=== PATIENT | female | born 1995 | race Caucasian/White ===

== ENCOUNTER 2018-08-26 12:44 | Observation (INO) ==
[2018-08-26] MEDS ORDERED: Ondansetron ODT 4 MG TAB.RAPDIS SL ONE (13:11)
--- NOTE | 2018-08-26 13:30 | Emergency Department Note ---
Disposition Clinical Impression: Postoperative hemorrhage of tonsil Disposition: Admitted As Inpatient Condition: Fair Referrals: Aleta Huertas [Primary Care Provider] - Forms: ED Satisfaction Letter, Work/School Release Time of Disposition: 15:31 General Adult HPI - General Chief complaint: ED General Medical Stated complaint: bleeding s/p tonsilectomy Time Seen by Provider: 08/26/18 12:57 Source: patient Limitations: no limitations Nursing Notes Reviewed: Yes Vital Signs Reviewed: Yes - History of Present Illness HPI Narrative: Patient is a 23-year-old female presenting to [facility] ED for a one-day history of tonsil bleeding. The patient is status post 6 days after tonsillectomy performed at this facility. Patient states that she has had no difficulties other than typical pain after the surgery which is well-managed at home with oxycodone-until this afternoon when the scab fell off her wounds she began to sense metallic taste in her mouth and began to cough up blood. Patient estimates that she has coughed up in total approximately 60-100 mL of blood based upon the amount that is currently in vomit bag with her in the room. Blood appears to be dark red. Upon initial evaluation patient is sitting upright in hospital bed with vomit bag in hand she is actively spitting up dark red blood intermittently into vomit bag. Patient is awake, alert, engaged to conversation answering questions appropriately. She is noncyanotic, nondiaphoretic, shows no signs of significant pallor, she is in no acute distress and there are no focal neurological deficits appreciated. Patient admits to throat pain/sore throat which has been consistent for the past 7 days after tonsillectomy, she also admits to hemoptysis due to the tonsillar bleeding. Patient denies headache, vision change, tinnitus, neck/back pain, dysphagia/odynophagia, chest pain/shortness of breath, abdominal pain/nausea/vomiting, numbness or paresthesias in her extremities, dizziness upon standing or difficulty with ambulation. Onset (ago): hour(s) Location: neck Radiation: non-radiation Pain Scale: 7 Consistency: constant Associated symptoms: Reports: denies other symptoms - Related Data Previous Rx's Medication Instructions Recorded Amoxicillin 875 mg PO BID #20 tablet 08/20/18 OxyCODONE Immed Rel [Roxicodone 5 5 mg PO Q6H PRN 7 Days #28 tablet 08/20/18 MG] Allergies Allergy/AdvReac Type Severity Reaction Status Date / Time cephalexin [From Keflex] Allergy See Verified 08/26/18 15:25 Comments sulfamethoxazole Allergy See Verified 08/26/18 15:25 [From Bactrim] Comments trimethoprim [From Bactrim] Allergy See Verified 08/26/18 15:25 Comments Review of Systems: As Per HPI Past Medical History - Past Medical History Source: patient Medical history: Reports: hypertension, other Surgical history: Reports: appendectomy Psychiatric history: Reports: anxiety 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 Absent: scleral icterus - ENT ENT exam: mucous membranes moist - Expanded ENT Exam Mouth exam: Present: other (There is a large blood clot noted in the right side of the throat at tonsillectomy site. Bleeding from bilateral tonsillectomy sites noted, dark red in color, nonpulsatile.) Throat exam: Absent: muffled voice - Neck Neck exam: Present: normal inspection, trachea midline, tenderness - Chest Chest inspection: Present: normal inspection, symmetric chest wall rise - Respiratory Respiratory exam: Present: normal lung sounds bilaterally. Absent: respiratory distress, wheezes, stridor, accessory muscle use, prolonged expiratory phase - Cardiovascular Cardiovascular exam: Present: normal rhythm, tachycardia, normal heart sounds, +S1, +S2. Absent: systolic murmur, diastolic murmur, JVD, +S3, +S4 - Abdominal Exam Abdominal exam: Present: soft, Non-Tender, normal bowel sounds. Absent: distention, guarding, rebound, rigidity - Extremities Exam Extremities exam: Present: normal inspection, other (Radial pulse is intact and strong.) - Neurological Exam Neurological exam: Present: alert, oriented X3 - Psychiatric Psychiatric exam: Present: normal affect, normal mood, anxious - Skin Skin exam: Present: warm, dry, intact, normal color. Absent: cyanosis, diaphoresis, pallor Course Course Narrative: Patient given cold ice water in room in hopes of providing vasoconstriction to the tonsil area - told to sip slowly so as to not irritate gastric mucosa she has probably swallowed some amount of blood. Patient given 8 mg sublingual Zofran for prophylaxis of nausea and vomiting in order to avoid further irritating the tonsils. - Reevaluation(s) Reevaluation #1: Patient reported feeling "warm and tingly" all over. Expresses anxiety over increased blood loss. Visual inspection of the oropharynx reveals increased bleeding from the right tonsil with apparent loss of original clot. Patient is estimated to have lost a total of approximately 200mL of blood and saliva based upon the amount in vomit bag. ENT consulted and will see patient in ED. Patient transferred to trauma bay for cauterization preparation by ENT. Patient given ice chips and water and instructed to gargle to promote vasoconstriction. Suction catheter with patient for removal of secretions. 50mg tranexamic acid administered through nebulizer to promote clot formation. Patient will be given 1L bolus of normal saline and 0.5 mg Ativan for the management of her symptoms. Patient remains hemodynamically stable at this time. Time: 14:34 Reevaluation #2: Patient states that she is feeling much better still very anxious ENT evaluated patient at bedside and recommends admission to surgical service- ENT will take patient to or later this afternoon for clot removal and cauterization Patient says that it is difficult to talk due to a clot causing irritation in the back of her throat-there appears to be no active bleeding at this time Patient will be given second dose of 0.5 mg Ativan for the management of her anxiety Time: 15:29 Vital Signs Temperature 97.9 F 08/26/18 12:45 Pulse Rate 81 08/26/18 12:45 Respiratory Rate 16 08/26/18 12:45 Blood Pressure 175/103 08/26/18 12:45 O2 Sat by Pulse Oximetry 99 08/26/18 12:45 Temperature 97.9 F 08/26/18 12:45 Pulse Rate 92 08/26/18 15:28 Respiratory Rate 22 08/26/18 15:16 Blood Pressure 166/109 08/26/18 15:28 O2 Sat by Pulse Oximetry 100 08/26/18 15:16 Oxygen Delivery Oxygen Delivery Room Air Medical Decision Making - [facility] Narrative Medical decision making narrative: Patient admitted to surgical service with Dr. See accepting admission. Patient will be taken to our later this afternoon for clot removal and cauterization. Admission planning discussed at length with the patient and patient verbalizes her understanding and agreement with this plan. Patient is hemodynamically stable at time of admission. - Lab Data Lab results reviewed: Yes I reviewed the patient's lab results. Result diagrams: 08/26/18 14:24 08/26/18 14:24 Lab Results 08/26/18 08/26/18 08/26/18 Range/Units 14:24 14:24 14:31 WBC 23.8 H (4.3-11.1) K/mcL RBC 4.96 (3.82-4.97) M/mcL Hgb 13.2 (11.5-15.4) g/dL Hct 41.0 (35.3-44.9) % MCV 82.7 L (83.0-100.0) fL MCH 26.6 L (28.0-33.3) pg MCHC 32.2 (31.6-35.5) g/dL RDW 13.5 (11.5-14.5) % Plt Count 428 H (140-400) K/mcL MPV 9.0 L (9.4-12.4) fL Immature Gran % 0.8 (0-4) % Seg Neutrophils % 69.2 % Lymphocytes % 24.1 % Monocytes % 5.6 % Eosinophils % 0.1 % Basophils % 0.2 % Neutrophils # 16.5 H (1.6-8.9) K/mcL Lymphocytes # 5.7 H (0.6-4.6) K/mcL Monocytes # 1.3 (0.0-1.3) K/mcL Eosinophils # 0.0 (0.0-0.6) K/mcL Basophils # 0.0 (0.0-0.2) K/mcL PT 10.0 (9.4-12.1) Seconds INR 0.9 Sodium 138 (136-145) mEq/L Potassium 4.1 (3.5-5.1) mEq/L Chloride 102 (98-107) mEq/L Carbon Dioxide 30 H (23-29) mEq/L BUN 16 (6-20) mg/dL Creatinine 0.58 L (0.60-1.20) mg/dL Est GFR ( Amer) > 60 (> 60) Est GFR (Non-Af Amer) > 60 (> 60) BUN/Creatinine Ratio 28 H (6-26) Glucose 103 (70-105) mg/dL Calculated Osmolality 287 (280-300) Calcium 9.5 (8.6-10.3) mg/dL Attestation Statement - Attestation Attestation: I, Jaswinder Kiser DO, examined this patient [id number] and my medical decision-making was reviewed with Dr. Alexis Ponce, Resident Physician. I agree with the documented findings, disposition and treatment plan as described except to the extent set forth below. Please see my progress notes for details.
--- NOTE | 2018-08-26 13:45 | Emergency Department Note ---
Disposition Clinical Impression: Postoperative hemorrhage of tonsil Disposition: Admitted As Inpatient Condition: Fair Referrals: Aleta Huertas [Resident] - Forms: ED Satisfaction Letter, Work/School Release Time of Disposition: 15:17 General Adult HPI - General Chief complaint: ED General Medical Stated complaint: bleeding s/p tonsilectomy Time Seen by Provider: 08/26/18 12:57 Source: patient Limitations: no limitations - History of Present Illness Location: neck Pain Scale: 7 Associated symptoms: Reports: denies other symptoms - Related Data Home Medications Medication Instructions Recorded Confirmed Labetalol HCl 100 mg PO BID 08/20/18 08/20/18 Norethindrone-E.estradiol-Iron 1 each PO DAILY 08/20/18 08/20/18 [Junel Fe 1.5 mg-30 Mcg Tablet] Previous Rx's Medication Instructions Recorded Amoxicillin 875 mg PO BID #20 tablet 08/20/18 Dexamethasone [Decadron] 8 mg PO Q72H #4 tab 08/20/18 OxyCODONE Immed Rel [Roxicodone 5 5 mg PO Q6H PRN 7 Days #28 tablet 08/20/18 MG] Allergies Allergy/AdvReac Type Severity Reaction Status Date / Time cephalexin [From Keflex] Allergy See Verified 08/10/18 08:45 Comments sulfamethoxazole Allergy See Verified 08/10/18 08:45 [From Bactrim] Comments trimethoprim [From Bactrim] Allergy See Verified 08/10/18 08:45 Comments Past Medical History - Past Medical History Medical history: Reports: hypertension, other Surgical history: Reports: appendectomy Psychiatric history: Reports: anxiety 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 history - Social History Smoking Status: Never smoker Smokeless Tobacco Status: No Alcohol use: Reports: rarely Drug use: Reports: none Physical Exam - General Limitations: no limitations General appearance: alert, in no apparent distress Course Vital Signs Temperature 97.9 F 08/26/18 12:45 Pulse Rate 81 08/26/18 12:45 Respiratory Rate 16 08/26/18 12:45 Blood Pressure 175/103 08/26/18 12:45 O2 Sat by Pulse Oximetry 99 08/26/18 12:45 Temperature 97.9 F 08/26/18 12:45 Pulse Rate 98 08/26/18 14:30 Respiratory Rate 22 08/26/18 14:30 Blood Pressure 168/114 08/26/18 14:30 O2 Sat by Pulse Oximetry 100 08/26/18 14:30 Oxygen Delivery Oxygen Delivery Room Air Medical Decision Making - Lab Data Result diagrams: 08/26/18 14:24 Lab Results 08/26/18 Range/Units 14:24 WBC 23.8 H (4.3-11.1) K/mcL RBC 4.96 (3.82-4.97) M/mcL Hgb 13.2 (11.5-15.4) g/dL Hct 41.0 (35.3-44.9) % MCV 82.7 L (83.0-100.0) fL MCH 26.6 L (28.0-33.3) pg MCHC 32.2 (31.6-35.5) g/dL RDW 13.5 (11.5-14.5) % Plt Count 428 H (140-400) K/mcL MPV 9.0 L (9.4-12.4) fL Immature Gran % 0.8 (0-4) % Seg Neutrophils % 69.2 % Lymphocytes % 24.1 % Monocytes % 5.6 % Eosinophils % 0.1 % Basophils % 0.2 % Neutrophils # 16.5 H (1.6-8.9) K/mcL Lymphocytes # 5.7 H (0.6-4.6) K/mcL Monocytes # 1.3 (0.0-1.3) K/mcL Eosinophils # 0.0 (0.0-0.6) K/mcL Basophils # 0.0 (0.0-0.2) K/mcL Attestation Statement - Attestation Attestation: I, Jaswinder Kiser DO, examined this patient [id number] and my medical decision-making was reviewed with Dr. Alexis Ponce, Resident Physician. I agree with the documented findings, disposition and treatment plan as described except to the extent set forth below. Please see my progress notes for details. 23-year-old female presents emergency room with complaint of bleeding status post tonsillectomy on 08/07/18. Patient denies any new symptoms or issues. Last night one of the scabs and sharp fell off and on since then she has had intermittent bleeding when she spits. Patient denies any headache vision change s nausea vomiting or diarrhea prior to coming in. Denies any recent fevers or chills. Denies any trauma or injury. Vital signs otherwise stable in triage. Patient is alert she is oriented she speaking in full sentences. She does not have any signs of muffled voice. Oropharynx appears to be stable. Right tonsillar pole shows enlarged hematoma or clot attached to the surface of the tonsillar cavity. The original tonsil was removed. He is midline. Trachea is patent. There is trickling blood on the posterior pharynx this time. She has no stridor no trismus. Lungs are clear. Heart is regular. Patient denies any bleeding disorders. Patient had normal labs prior to that event almost 1 week ago. Patient will have cold water provided. Advised to gargle and spit out anything that is in her 30s this time. Suction and a WILL be placed at the bedside to help her with management of the secretions and then disposition will be determined after ENT consultation is placed. Actively, the patient does not require any immediate intervention which will be monitored closely. There is no other related issues going on at this time as well as the patient may require admission history observation because of her ability to return to the emergency department may be obstructed secondary to the elements. See detailed documentation the physical exam, medical intervention, medical decision-making disposition the resident physician's note. No critical care provider the patient's treatment course at this time. [id number] Patient has large clot in the posterior right tonsillar pillar. She continues to leak around it. The nose and throat physician presented to the emergency room for evaluation. Recommendation was dissected patient operating room to evacuate clot and cauterized area. Patient will be consented by the house and throat physician. We will monitor the emergency room until transportation to the operative suite is completed. 50 mg 3 times a day so was provided the patient by nebulizer treatment which did not seem to stop the bleeding but has provided some relief of this time. We will continue to monitor closely. No other acute concerns or issues this time. Screening labs were ordered for operating room treatment
[2018-08-26] MEDS ORDERED: 0.9 % Sodium Chloride 1,000 ML IVC ONE (14:07)
[2018-08-26] MEDS ORDERED: Silver Nitrate Applicator 1 STICK..EA. TP ONE (14:07)
[2018-08-26] MEDS ORDERED: Lidocaine -MPF 4% 5 ML AMPUL INFILT ONE (14:14)
[2018-08-26] MEDS ORDERED: 0.9 % Sodium Chloride 1,000 ML ONE (14:25)
[2018-08-26] MEDS ORDERED: *HR* LORazepam 2 MG/ML VIAL IVP ONE ×2 (14:26→14:58)
[2018-08-26 14:41] LABS: Basophils % 0.2 %; Eosinophils % 0.1 %; Hemoglobin 13.2 g/dL (11.5-15.4); Immature Granulocytes % 0.8 % (0-4); Lymphocytes # 5.7 K/mcL (0.6-4.6); Lymphocytes % 24.1 %; Mean Corpuscular HGB Conc 32.2 g/dL (31.6-35.5); Mean Corpuscular Hemoglobin 26.6 pg (28.0-33.3); Mean Corpuscular Volume 82.7 fL (83.0-100.0); Monocytes # 1.3 K/mcL (0.0-1.3); Monocytes % 5.6 %; Neutrophils # 16.5 K/mcL (1.6-8.9); Platelet Count 428 K/mcL (140-400); Red Blood Count 4.96 M/mcL (3.82-4.97); Red Cell Distribution Width 13.5 % (11.5-14.5); Segmented Neutrophils % 69.2 %
[2018-08-26 14:48] LABS: INR 0.9
[2018-08-26 15:02] LABS: BUN/Creatinine Ratio 28 (6-26); Blood Urea Nitrogen 16 mg/dL (6-20); Calcium 9.5 mg/dL (8.6-10.3); Carbon Dioxide 30 mEq/L (23-29); Chloride 102 mEq/L (98-107); Glucose 103 mg/dL (70-105); Osmolality,Calculated 287 (280-300); Potassium 4.1 mEq/L (3.5-5.1); Sodium 138 mEq/L (136-145); eGFR For Non-African Americans > 60 (> 60)
--- NOTE | 2018-08-26 15:15 | ENT - Consult Note ---
Date of Encounter: 08/26/18 Time of Encounter: 15:13 Assessment and Plan (1) Post-tonsillectomy hemorrhage Current Visit: Yes Status: Acute Patient with no active bleeding currently with intermittent bleeding for 5 hours from a right post-tonsillectomy bleed unable to assess any further bedside or treat for taking this patient to the OR for postoperative tonsillectomy cautery History of Present Illness Consult date: 08/26/18 Comment: Postoperative tonsillectomy bleed History of present illness: 23-year-old approximately 5 hours of intermittent bleeding from a right post- tonsillectomy bleeding site on postop day 6 no other medical problems E Flip Crowder stable patient was too nervous to allow us to suction the clot and cauterized at bedside therefore were given to take her to the operating room for cleaning of the oropharynx and cauterization of the right tonsil Past Med Surg Social Fam HX - Past Medical History Medical history: hypertension, other Additional medical history: pcos Psychiatric history: anxiety - Past Surgical History Surgical History: appendectomy - Social History Smoking Status: Never smoker Smokeless Tobacco Status: No Alcohol use: rarely Drug use: none Medications and Allergies Amoxicillin 875 mg PO BID #20 tablet 08/20/18 [Rx] Dexamethasone [Decadron] 8 mg PO Q72H #4 tab 08/20/18 [Rx] Labetalol HCl 100 mg PO BID 08/20/18 [History] Norethindrone-E.estradiol-Iron [Junel Fe 1.5 mg-30 Mcg Tablet] 1 each PO DAILY 0 08/20/18 [History] OxyCODONE Immed Rel [Roxicodone 5 MG] 5 mg PO Q6H PRN 7 Days #28 tablet 08/20/18 [Rx] Allergy/AdvReac Type Severity Reaction Status Date / Time cephalexin [From Keflex] Allergy See Verified 08/10/18 08:45 Comments sulfamethoxazole Allergy See Verified 08/10/18 08:45 [From Bactrim] Comments trimethoprim [From Bactrim] Allergy See Verified 08/10/18 08:45 Comments ENT Exam Initial Vital Signs Temp Pulse Resp BP Pulse Ox 97.9 F 81 16 175/103 99 08/26/18 12:45 08/26/18 12:45 08/26/18 12:45 08/26/18 12:45 08/26/18 12:45 - General physical appearance well developed, well nourished, no distress, no pain. negative: moderate distre ss, severe distress, moderate pain, severe pain, cachectic, obese - Eyes PERRL, normal ocular movement, icteric - ENT normal pinna, normal nares, normal mucosa, no hearing loss, no congestion, Other (Large clot in right tonsillar fossa no active bleeding unable to evaluate the patient any further at the bedside no prior history of bleeding issues). negative: decreased hearing, deviated nasal septum, nasal discharge, poor group home, dentures, mucosal exudate, dry mucosa - Neck no masses, trachea midline, no lymphadectomy. negative: deviated trachea, diffuse goiter, limited ROM - Respiratory normal expansion, normal respiratory effort, clear to percussion, clear to auscultation - Abdomen Abdomen: soft, non tender, bowel sounds, no tender, no surgical scars - Integumentary no rash, no growths, no abnormal pigmentation - Neurologic normal coordination, normal sensation - Musculoskeletal normal gait, normal posture - Psychiatric oriented to time, oriented to person, oriented to place, speech is normal, memory intact Exam Initial Vital Signs Temp Pulse Resp BP Pulse Ox 97.9 F 81 16 175/103 99 08/26/18 12:45 08/26/18 12:45 08/26/18 12:45 08/26/18 12:45 08/26/18 12:45 Results - Labs 08/26/18 14:24 08/26/18 14:24 Abnormal lab results WBC 23.8 K/mcL (4.3-11.1) H 08/26/18 14:24 MCV 82.7 fL (83.0-100.0) L 08/26/18 14:24 MCH 26.6 pg (28.0-33.3) L 08/26/18 14:24 Plt Count 428 K/mcL (140-400) H 08/26/18 14:24 MPV 9.0 fL (9.4-12.4) L 08/26/18 14:24 Neutrophils # 16.5 K/mcL (1.6-8.9) H 08/26/18 14:24 Lymphocytes # 5.7 K/mcL (0.6-4.6) H 08/26/18 14:24 Carbon Dioxide 30 mEq/L (23-29) H 08/26/18 14:24 Creatinine 0.58 mg/dL (0.60-1.20) L 08/26/18 14:24 BUN/Creatinine Ratio 28 (6-26) H 08/26/18 14:24 Diabetes panel 08/26/18 Range/Units 14:24 Sodium 138 (136-145) mEq/L Potassium 4.1 (3.5-5.1) mEq/L Chloride 102 (98-107) mEq/L Carbon Dioxide 30 H (23-29) mEq/L BUN 16 (6-20) mg/dL Creatinine 0.58 L (0.60-1.20) mg/dL Glucose 103 (70-105) mg/dL Calcium 9.5 (8.6-10.3) mg/dL Calcium panel 08/26/18 Range/Units 14:24 Calcium 9.5 (8.6-10.3) mg/dL Pituitary panel 08/26/18 Range/Units 14:24 Sodium 138 (136-145) mEq/L Potassium 4.1 (3.5-5.1) mEq/L Chloride 102 (98-107) mEq/L Carbon Dioxide 30 H (23-29) mEq/L BUN 16 (6-20) mg/dL Creatinine 0.58 L (0.60-1.20) mg/dL Glucose 103 (70-105) mg/dL Calcium 9.5 (8.6-10.3) mg/dL Adrenal panel 08/26/18 Range/Units 14:24 Sodium 138 (136-145) mEq/L Potassium 4.1 (3.5-5.1) mEq/L Chloride 102 (98-107) mEq/L Carbon Dioxide 30 H (23-29) mEq/L BUN 16 (6-20) mg/dL Creatinine 0.58 L (0.60-1.20) mg/dL Glucose 103 (70-105) mg/dL Calcium 9.5 (8.6-10.3) mg/dL All other labs normal. Consult Discharge Plan - Plan Referrals: Aleta Huertas [Primary Care Provider] -
[2018-08-26] MEDS ORDERED: Ondansetron 4 MG/2 ML VIAL IVP PRN (16:05)
--- NOTE | 2018-08-26 16:14 | Anesthesia Evaluation PreOp ---
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 Any Significant HX Other Medical History: Diabetes Type II (prediabetic) Anesthesia History: No Prior Anesthetic Complications, Past Anesthesia (Appy) Test: Negative (08/20/2018)) Alcohol Use: rarely Drug use: none Medications and Allergies Amoxicillin 875 mg PO BID #20 tablet 08/20/18 [Rx] OxyCODONE Immed Rel [Roxicodone 5 MG] 5 mg PO Q6H PRN 7 Days #28 tablet 08/20/18 [Rx] Dexamethasone [Decadron] 8 mg PO DAILY 08/26/18 [History] Labetalol [Trandate] 100 mg PO BID 08/26/18 [History] Pantoprazole Sodium [Protonix] 40 mg PO DAILY 08/26/18 [History] metFORMIN [Glucophage] 500 mg PO 1700 08/26/18 [History] Allergy/AdvReac Type Severity Reaction Status Date / Time cephalexin [From Keflex] Allergy See Verified 08/26/18 15:25 Comments sulfamethoxazole Allergy See Verified 08/26/18 15:25 [From Bactrim] Comments trimethoprim [From Bactrim] Allergy See Verified 08/26/18 15:25 Comments - Meds/Allergy Pre-op Review Medications Reviewed: Yes Allergies Reviewed: Yes Beta Blockers on Current Med List: No Anesthesia Results - Labs 08/26/18 14:24 08/26/18 14:24 Anesthesia Exam O2 Sat Height 1.65 m Weight 100.062 kg O2 Sat by Pulse Oximetry 100 O2 Sat by Pulse Oximetry 100 O2 Sat by Pulse Oximetry 100 O2 Sat by Pulse Oximetry 100 O2 Sat by Pulse Oximetry 100 O2 Sat by Pulse Oximetry 100 O2 Sat by Pulse Oximetry 100 O2 Sat by Pulse Oximetry 100 O2 Sat by Pulse Oximetry 100 O2 Sat by Pulse Oximetry 99 Vital Signs Temp Pulse Resp BP Pulse Ox 97.9 F 81 16 175/103 99 08/26/18 12:45 08/26/18 12:45 08/26/18 12:45 08/26/18 12:45 08/26/18 12:45 NPO (# of Hours): > 8 hrs Pain Scale: 0 Pain Scale Used: Numeric (1 - 10) - HEENT Pupil (Motor): Pupils equal, EOMI Mallampati: I Teeth: Normal Oral Opening: Greater than 3 - HEAD FILTER TANK TENDER HELPER LOC: Oriented HEAD FILTER TANK TENDER HELPER Motor: Normal RUE, Normal LUE, Normal RLE, Normal LLE, Normal Face HEAD FILTER TANK TENDER HELPER Sensory: Normal: RUE, LUE, RLE, LLE, Face - Cardiac Rhythm: Regular Murmur: None Carotid Bruit: No - Pulmonary Breath Sounds: bilateral Clear Respiratory Effort: Symmetrical Anesthesia Assess/Plan ASA Score: 2, E Level of consciousness: Cooperative Anesthetic Plan: General Autologous Blood: Yes Monitoring Plan: Standard Monitors Recovery Plan: PACU
[2018-08-26] MEDS ORDERED: Ringers Solution, Lactated 1,000 ML IVC SCH (16:15)
[2018-08-26] MEDS ORDERED: *HR* HYDROcodone/Acet 5/325 mg TABLET PO ONE (17:12)
[2018-08-26] MEDS ORDERED: *HR* Propofol 200 MG/20 ML VIAL IVP ONE (17:35)
[2018-08-26] MEDS ORDERED: *HR* FentaNYL (PF) 100 MCG/2 ML VIAL ONE (17:35)
[2018-08-26] MEDS ORDERED: Ondansetron 4 MG/2 ML VIAL IVP ONE (18:02)
[2018-08-26] MEDS ORDERED: *HR* Promethazine 25 MG/ML VIAL IVP PRN (18:02)
[2018-08-26] MEDS ORDERED: *HR* Metoprolol 5 MG/5 ML VIAL IVP ONE (18:34)
--- NOTE | 2018-08-26 18:53 | Operative Note ---
Date of procedure: 08/26/18 Pre-op diagnosis: Post tonsillectomy bleed right side Post-op diagnosis: same Procedure: Post tonsillectomy cautery the patient had been bleeding for approximately 6 hours intermittently from the right side there was a large clot in the right tonsillar fossa this was removed there were 3 areas that required cautery one inferiorly one superiorly and one in the middle of the tonsillar fossa all requiring artery sedation with a cautery setting at 25 the [place] mouthgag was removed the right tonsil was reevaluated and recauterized this was performed several times before obtaining adequate cauterization and the patient was awakened in good condition there was only about 10 mils of loss of blood intraoperatively Complications: None Anesthesia: JAMAA Surgeon: Tim See Was there an assistant secretary present: No Estimated blood loss (cc): 125 Specimen: None Procedure in Detail: As above
[2018-08-26] MEDS ORDERED: *HR* Labetalol 20 MG/4 ML SYRINGE IVP ONE ×2 (18:55)
[2018-08-26] MEDS: *HR* HYDROmorphone (PF) 1 MG/ML SYRINGE IVP PRN ×2 (19:00→19:08)
[2018-08-26] MEDS ORDERED: *HR* Midazolam HCl 2 MG/2 ML VIAL ONE (19:15)
[2018-08-26] MEDS ORDERED: cloNIDine HCl 0.1 MG TABLET ONE (19:16)
[2018-08-26] MEDS ORDERED: *HR* Midazolam HCl 2 MG/2 ML VIAL IVP PRN (19:16)
[2018-08-26] MEDS ORDERED: cloNIDine HCl 0.1 MG TABLET PO ONE (19:17)
[2018-08-26] MEDS ORDERED: *HR* Midazolam HCl 2 MG/2 ML VIAL IVP ONE (19:22)
--- NOTE | 2018-08-26 19:36 | Anesthesia Evaluation Post Op ---
Date of Encounter: 08/26/18 Time of Encounter: 19:41 - Vital Signs Vital Signs: Vital Signs/O2 Sat/Glucose, Most Current Temp Pulse Resp BP Pulse Ox 08/26/18 19:30 92 14 138/87 95 08/26/18 19:20 98.6 F 86 16 146/90 95 08/26/18 19:10 112 18 150/109 95 08/26/18 19:00 101 22 159/103 92 08/26/18 18:50 97.3 F L 114 22 179/113 92 08/26/18 16:25 98.2 F 104 16 151/103 97 - Lungs Lungs: Clear Ascult./Percussion - Airway Airway: Non-obstructed - Cardiovascular Regular Rate - Mental Status Mental Status: Alert & Oriented, Answers Appropriately, Asleep with brisk response to light stimulation - Pain Pain Scale: 1 Pain Scale used: Solano-Ponce (Faces) - Nausea Vomiting Nausea Vomiting: Not Present - Hydration Hydration: Tolerates oral liquids - Discharge PostOp Status: Transfer Patient to floor Anes Supervising Prov Stmt: Pt seen/evaluated, VSS And has met criteria for discharge to floor. - MD Sarah
[2018-08-26 22:09] VITALS: BP 150/107
== END 2018-08-26 22:21 | disposition home or self-care (01) ==
LOC: EMEROOARM 12:44 → 3BNU 12:44
PROVIDERS: ADMIT Otolaryngology; ATTEND Otolaryngology

== ENCOUNTER 2019-03-06 08:00 | Inpatient (IN) ==
[2019-03-06] MEDS ORDERED: D5% in Lactated Ringers 1,000 ML IVC SCH (08:45)
[2019-03-06] MEDS ORDERED: miSOPROStol 25 MCG TABLET VG ONE (08:47)
--- NOTE | 2019-03-06 08:57 | OB/GYN History & Physical ---
Date of Encounter: 03/06/19 Time of Encounter: 08:53 Assessment and Plan (1) 14 weeks gestation of Current visit: Yes Status: Acute She is to advanced to offer her a D&E here. Offered pt transfer to [facility] for Advance D&E w/ family planning. Pt declines. Plan to admit for medical termination with misoprostol. (2) Monochorionic diamniotic twin gestation in second trimester Current visit: Yes Status: Acute With demise w/ CRLs of 13 1/7 and 13 3/7 (3) demise before 20 weeks with retention of fetus Current visit: Yes Status: Acute Admitting for medical termination. Plan for misoprostol 600mcg PV once followed by 400mcg every 3 hours PRN. Prepare for possible D&E for incomplete with heavy bleeding History of Present Illness Chief complaint: 14 week demise of mono di twins HPI: Ms. Barakat is a 23 year old at 14 2/7 wks EDC determined by US who presents for medical termination due to demise of mono di twins. She is coping as well as I would expect her to be. The fetuses measure 13 1/7 and 13 3/7wks with no heart tones. This was noted at an outside hospital and then confirmed in the office 03/04/19. She understands that advance D&E is an option at an outside facility ([facility]-family planning) but she would prefer to stay here for a medical termination. She would like to avoid surgery if possible. She understands that there is a chance that she will need a D&E for an incomplete . She has hx of a FT , her daughter is 2yo. Hx of cHTN-not currently on medication, hx of taking labetalol for her BP but with lifestyle changes, she was able to discontinue her medication. Hx of lap appy and tonsillectomy. Past Med Surg Social Fam HX - Past Medical History Medical history: hypertension Additional medical history: pcos Psychiatric history: anxiety - Past Surgical History Surgical History: appendectomy - Social History Smoking Status: Never smoker Smokeless Tobacco Status: No Alcohol use: none Drug use: none - Family History Mother Living Status: Hx Family Cardiac Disorders: No Father Living Status: Still Living Hx Family Endocrine Disorder: Yes Obstetrical History - Pregnancies : 2 Para: 1 Term: 1 - History/Complications History/Complications: 1 FT Medications and Allergies Pnv No.122/Iron/Folic Acid [ Multi Tablet] 1 each PO DAILY #30 tablet 12/14/18 [Rx] Allergy/AdvReac Type Severity Reaction Status Date / Time cephalexin [From Keflex] Allergy See Verified 12/31/18 23:22 Comments sulfamethoxazole Allergy See Verified 12/31/18 23:22 [From Bactrim] Comments trimethoprim [From Bactrim] Allergy See Verified 12/31/18 23:22 Comments Review of System OB - Constitutional Constitutional ROS IM: no fever(s) - Cardiovascular Cardiovascular: no chest pain - Respiratory Respiratory: no dyspnea - Gastrointestinal Gastrointestinal: no abdominal pain - Genitourinary Genitourinary: pelvic pain (mildly crampy, no vaginal bleeding) Exam - Constitutional Constitutional: well developed, no acute distress, average body habitus - Lungs Respiratory exam: CTAB - Cardiovascular Cardiovascular exam: RRR - Abdomen Abdomen: Present: bowel sounds normal. Absent: non tender Results All other labs normal. - VTE Reasons for not Prescribing Prophylaxis: Treatment not Indicated - Low risk for VTE
[2019-03-06 09:39] LABS: Basophils % 0.3 %; Eosinophils # 0.1 K/mcL (0.0-0.6); Eosinophils % 0.5 %; Hematocrit 36.7 % (35.3-44.9); Hemoglobin 12.2 g/dL (11.5-15.4); Immature Granulocytes % 0.4 % (0-4); Lymphocytes # 3.1 K/mcL (0.6-4.6); Lymphocytes % 22.3 %; Mean Corpuscular HGB Conc 33.2 g/dL (31.6-35.5); Mean Corpuscular Hemoglobin 26.9 pg (28.0-33.3); Mean Platelet Volume 9.6 fL (9.4-12.4); Monocytes # 0.6 K/mcL (0.0-1.3); Monocytes % 4.5 %; Neutrophils # 9.9 K/mcL (1.6-8.9); Platelet Count 290 K/mcL (140-400); Red Blood Count 4.53 M/mcL (3.82-4.97); Red Cell Distribution Width 13.5 % (11.5-14.5); White Blood Count 13.7 K/mcL (4.3-11.1)
[2019-03-06] MEDS ORDERED: miSOPROStol 100 MCG TABLET VG ONE (09:45)
[2019-03-06 09:50] LABS: Amphetamine Screen,Urine Negative ng/mL (Cutoff=1000); Barbiturate Screen,Urine Negative ng/mL (Cutoff=200); Benzodiazepines Screen,Urine Negative ng/mL (Cutoff=200); Cannabinoid Screen,Urine Negative ng/mL (Cutoff = 50); Cocaine Screen,Urine Negative ng/mL (Cutoff= 300); Opiate Screen,Urine Negative ng/mL (Cutoff=300); Phencyclidine Screen,Urine Negative ng/mL (Cutoff=25)
--- NOTE | 2019-03-06 09:50 | Event Note ---
Date of Encounter: 03/06/19 Time of Encounter: 09:48 23yo at 14 2/7 wks w/ mono di twin demise starting medical termination. Placed misoprostol 600mcg vaginally. Plan to recheck in 3 hours.
[2019-03-06] MEDS ORDERED: miSOPROStol 25 MCG TABLET VG SCH (12:00)
[2019-03-06] MEDS: miSOPROStol 100 MCG TABLET VG SCH ×2 (12:48→15:42)
[2019-03-06] MEDS: *HR* Nalbuphine 10 MG/ML AMPUL IV PRN ×2 (13:03→15:47)
--- NOTE | 2019-03-06 15:50 | OB Labor Progress Note ---
Date of Encounter: 03/06/19 Time of Encounter: 15:48 Labor Progress Note - Subjective Subjective: Pt felt better after getting Nubain for her cramping. Declines another dose or an epidural at this time. Per nurse, she spontanously rupture for blood tinged fluid - Cervix Cervix: /-2 palpate part-possibly head, at int os - Heart Tones Heart Tones: not monitored-demise - Interventions Interventions: placed misoprostol 400mcg PV (this is her third dose-first dose 600mcg, 2nd 400mcg)
[2019-03-06] MEDS ORDERED: Ondansetron 4 MG/2 ML VIAL IVP ONE (16:21)
[2019-03-06] MEDS ORDERED: Ringers Solution, Lactated 1,000 ML ONE (16:33)
--- NOTE | 2019-03-06 17:16 | OB/GYN Procedure Note ---
Delivery - Delivery Date: 03/06/19 Provider: Jagruti Barnes Intrapartum events: none Delivery induction: misoprostol Delivery augmentation: cytotec Delivery monitor: none Anesthesia: intravenous - Infant (s) A Infant Delivery Date: 03/06/19 Presentation: vertex Position: unknown Route of delivery: Viability: Nonviable (14 week delivery of mono di twins) B Delivery Date: 03/06/19 Presentation: vertex Position: unknown Route of delivery: Viability: Nonviable (14 week monodi twins IOL for demise) Shoulder Dystocia: not encountered - Repair Episiotomy: none Laceration Description: None - Complications Delivery complications: retained placenta - Comments Comments: Disposition guarded: awaiting delivery of the placenta
[2019-03-06] MEDS ORDERED: miSOPROStol 100 MCG TABLET PO ONE (17:31)
--- NOTE | 2019-03-06 17:56 | Event Note ---
Date of Encounter: 03/06/19 Time of Encounter: 17:54 23yo now s/p of 14 wk twin demise, medical termination w/ misoprostol. Twins delivered shortly after SROM. The placenta did not deliver. Considering next dose of misoprostol buccally. Exam demonstrated placenta and clot in the vagina. Placenta delivered. Maternal surface appears ratty. Plan to do stat US to confirm complete . Giving misoprostol 800mcg buccally. Lochia light at this time. Plan to recheck hgb in 6 hrs. EBL for delivery of twins and placenta 300cc.
[2019-03-06] MEDS ORDERED: Ibuprofen 600 MG TABLET PO STA (20:51)
[2019-03-07 00:46] LABS: Basophils % 0.4 %; Eosinophils # 0.1 K/mcL (0.0-0.6); Eosinophils % 0.8 %; Hemoglobin 11.2 g/dL (11.5-15.4); Immature Granulocytes % 0.6 % (0-4); Lymphocytes # 3.6 K/mcL (0.6-4.6); Lymphocytes % 32.9 %; Mean Corpuscular HGB Conc 33.9 g/dL (31.6-35.5); Mean Corpuscular Hemoglobin 27.8 pg (28.0-33.3); Mean Corpuscular Volume 81.9 fL (83.0-100.0); Mean Platelet Volume 9.4 fL (9.4-12.4); Monocytes # 0.6 K/mcL (0.0-1.3); Monocytes % 5.8 %; Neutrophils # 6.5 K/mcL (1.6-8.9); Platelet Count 272 K/mcL (140-400); Red Blood Count 4.03 M/mcL (3.82-4.97); Red Cell Distribution Width 13.4 % (11.5-14.5); Segmented Neutrophils % 59.5 %; White Blood Count 10.9 K/mcL (4.3-11.1)
== END 2019-03-07 01:23 | disposition home or self-care (01) | DRG 560 ==
LOC: 1NENULAB 08:08
PROVIDERS: ADMIT Obstetrics & Gynecology; ATTEND Obstetrics & Gynecology

== ENCOUNTER → 2020-05-24 09:15 | Observation (INO) ==
[2020-05-23 22:53] LABS: Amorphous Sediment,Urine Few per hpf (None-Few); Bacteria,Urine Few per hpf (None-Few); Bilirubin,Urine Negative (Negative); Blood,Urine Trace (Negative); Clarity,Urine Turbid (Clear); Color,Urine Yellow (Yellow); Glucose,Urine (UA) Normal (Normal); Ketones,Urine 40 mg/dL (Negative); Leukocyte Esterase,Urine Negative (Negative); Mucus,Urine Few per lpf (None-Few); Nitrite,Urine Negative (Negative); Protein,Urine Trace mg/dL (Neg-Trace); RBC,Urine 0-3 per hpf (0-3); Specific Gravity,Urine 1.029 (1.010-1.025); Squamous Epithelial Cell,Urine Moderate per hpf (None-Few); Urobilinogen,Urine Normal (Normal)
[2020-05-23 22:58] LABS: Basophils % 0.1 %; Eosinophils % 0.3 %; Hematocrit 37.6 % (35.3-44.9); Hemoglobin 12.1 g/dL (11.5-15.4); Immature Granulocytes % 0.8 % (0-4); Lymphocytes # 3.3 K/mcL (0.6-4.6); Mean Corpuscular HGB Conc 32.2 g/dL (31.6-35.5); Mean Corpuscular Hemoglobin 26.9 pg (28.0-33.3); Mean Corpuscular Volume 83.6 fL (83.0-100.0); Mean Platelet Volume 9.8 fL (9.4-12.4); Monocytes # 0.7 K/mcL (0.0-1.3); Monocytes % 5.2 %; Neutrophils # 10.1 K/mcL (1.6-8.9); Platelet Count 286 K/mcL (140-400); Segmented Neutrophils % 70.6 %; White Blood Count 14.3 K/mcL (4.3-11.1)
[2020-05-23 23:16] LABS: Amphetamine Screen,Urine Negative ng/mL (Cutoff=1000); Barbiturate Screen,Urine Negative ng/mL (Cutoff=200); Benzodiazepines Screen,Urine Negative ng/mL (Cutoff=200); Cannabinoid Screen,Urine Negative ng/mL (Cutoff = 50); Cocaine Screen,Urine Negative ng/mL (Cutoff= 300); Opiate Screen,Urine Negative ng/mL (Cutoff=300); Phencyclidine Screen,Urine Negative ng/mL (Cutoff=25)
[2020-05-23 23:31] LABS: Alanine Aminotransferase 20 Units/L (7-52); Aspartate Amino Transferase 13 Units/L (13-39); BUN/Creatinine Ratio 16 (6-26); Blood Urea Nitrogen 7 mg/dL (6-20); Lactate Dehydrogenase 96 Units/L (140-271); Uric Acid 4.9 mg/dL (2.3-7.6); eGFR For African Americans > 60 (> 60); eGFR For Non-African Americans > 60 (> 60)
[2020-05-24 00:31] LABS: Creatinine,Urine 244 mg/dL; Protein/Creatinine Ratio,Urine 0.12 mg/mg (0.00-0.20)
[~2020-05-24 09:15] MED LIST: Acetaminophen 325 MG TABLET PO ONE; D5% in 0.45% NACL 1,000 ML IVC SCH; Famotidine 20 MG/2 ML VIAL IVP PRN; Metoclopramide 10 MG/2 ML VIAL IVP PRN; Naloxone 0.4 MG/ML INJ IVP PRN
== END | disposition home or self-care (01) ==
LOC: 1NENULAB
PROVIDERS: ADMIT Obstetrics & Gynecology; ATTEND Obstetrics & Gynecology

== ENCOUNTER → 2020-06-27 01:02 | Observation (INO) ==
[2020-06-27 00:26] LABS: Protein/Creatinine Ratio,Urine 0.13 mg/mg (0.00-0.20)
[2020-06-27 00:28] LABS: Basophils % 0.3 %; Eosinophils % 0.3 %; Hematocrit 36.3 % (35.3-44.9); Hemoglobin 11.4 g/dL (11.5-15.4); Immature Granulocytes % 0.6 % (0-4); Lymphocytes # 2.1 K/mcL (0.6-4.6); Lymphocytes % 19.5 %; Mean Corpuscular HGB Conc 31.4 g/dL (31.6-35.5); Mean Corpuscular Hemoglobin 26.1 pg (28.0-33.3); Mean Corpuscular Volume 83.3 fL (83.0-100.0); Mean Platelet Volume 9.9 fL (9.4-12.4); Monocytes # 0.9 K/mcL (0.0-1.3); Monocytes % 8.3 %; Neutrophils # 7.7 K/mcL (1.6-8.9); Platelet Count 239 K/mcL (140-400); Red Blood Count 4.36 M/mcL (3.82-4.97); White Blood Count 10.8 K/mcL (4.3-11.1)
[2020-06-27 00:36] LABS: Alanine Aminotransferase 11 Units/L (7-52); Aspartate Amino Transferase 11 Units/L (13-39); BUN/Creatinine Ratio 14 (6-26); Blood Urea Nitrogen 8 mg/dL (6-20); Lactate Dehydrogenase 92 Units/L (140-271); Uric Acid 5.2 mg/dL (2.3-7.6); eGFR For African Americans > 60 (> 60); eGFR For Non-African Americans > 60 (> 60)
== END | disposition home or self-care (01) ==
LOC: 1NENULAB
PROVIDERS: ADMIT Obstetrics & Gynecology; ATTEND Obstetrics & Gynecology

== ENCOUNTER 2020-06-28 10:36 | Observation (INO) ==
[2020-06-28 11:44] LABS: Bacteria,Urine Few per hpf (None-Few); Bilirubin,Urine Negative (Negative); Blood,Urine Small (Negative); Clarity,Urine Turbid (Clear); Color,Urine Light-Yellow (Yellow); Glucose,Urine (UA) Normal (Normal); Ketones,Urine Negative (Negative); Leukocyte Esterase,Urine Large (Negative); Mucus,Urine Few per lpf (None-Few); Nitrite,Urine Negative (Negative); PH,Urine 6.5 pH Units (5.0-8.0); Protein,Urine 30 mg/dL (Neg-Trace); Specific Gravity,Urine 1.015 (1.010-1.025); Squamous Epithelial Cell,Urine Moderate per hpf (None-Few); Urobilinogen,Urine Normal (Normal); WBC,Urine TNTC per hpf (0-3)
[2020-06-28 11:48] LABS: Protein/Creatinine Ratio,Urine 0.35 mg/mg (0.00-0.20)
[2020-06-28 11:55] LABS: Basophils % 0.3 %; Eosinophils % 0.3 %; Hemoglobin 11.4 g/dL (11.5-15.4); Immature Granulocytes % 0.5 % (0-4); Lymphocytes # 2.3 K/mcL (0.6-4.6); Lymphocytes % 19.9 %; Mean Corpuscular HGB Conc 32.6 g/dL (31.6-35.5); Mean Corpuscular Hemoglobin 26.6 pg (28.0-33.3); Mean Corpuscular Volume 81.6 fL (83.0-100.0); Mean Platelet Volume 10.3 fL (9.4-12.4); Monocytes # 0.7 K/mcL (0.0-1.3); Monocytes % 6.1 %; Neutrophils # 8.5 K/mcL (1.6-8.9); Platelet Count 239 K/mcL (140-400); Red Blood Count 4.29 M/mcL (3.82-4.97); Red Cell Distribution Width 13.2 % (11.5-14.5); Segmented Neutrophils % 72.9 %; White Blood Count 11.7 K/mcL (4.3-11.1)
[2020-06-28 12:53] LABS: Alanine Aminotransferase 13 Units/L (7-52); Aspartate Amino Transferase 9 Units/L (13-39); BUN/Creatinine Ratio 11 (6-26); Blood Urea Nitrogen 6 mg/dL (6-20); Lactate Dehydrogenase 95 Units/L (140-271); Uric Acid 5.4 mg/dL (2.3-7.6); eGFR For African Americans > 60 (> 60); eGFR For Non-African Americans > 60 (> 60)
== END 2020-06-28 13:15 | disposition home or self-care (01) ==
LOC: 1NENULAB
PROVIDERS: ADMIT Obstetrics & Gynecology; ATTEND Obstetrics & Gynecology

== ENCOUNTER 2020-07-04 13:03 | Observation (INO) ==
[2020-07-04 05:37] LABS: Bacteria,Urine Moderate per hpf (None-Few); Bilirubin,Urine Negative (Negative); Blood,Urine Moderate (Negative); Clarity,Urine Turbid (Clear); Color,Urine Yellow (Yellow); Glucose,Urine (UA) Normal (Normal); Ketones,Urine Negative (Negative); Leukocyte Esterase,Urine Large (Negative); Mucus,Urine Few per lpf (None-Few); Nitrite,Urine Negative (Negative); Protein,Urine 70 mg/dL (Neg-Trace); RBC,Urine 30-50 per hpf (0-3); Specific Gravity,Urine 1.018 (1.010-1.025); Squamous Epithelial Cell,Urine Few per hpf (None-Few); Urobilinogen,Urine Normal (Normal); WBC,Urine TNTC per hpf (0-3)
[2020-07-04 06:43] LABS: Protein/Creatinine Ratio,Urine 1.32 mg/mg (0.00-0.20)
[2020-07-04 08:48] LABS: Basophils % 0.2 %; Eosinophils % 0.3 %; Hemoglobin 11.3 g/dL (11.5-15.4); Immature Granulocytes % 0.6 % (0-4); Lymphocytes # 2.9 K/mcL (0.6-4.6); Lymphocytes % 20.2 %; Mean Corpuscular HGB Conc 32.3 g/dL (31.6-35.5); Mean Corpuscular Hemoglobin 26.3 pg (28.0-33.3); Mean Corpuscular Volume 81.4 fL (83.0-100.0); Mean Platelet Volume 10.4 fL (9.4-12.4); Monocytes # 0.8 K/mcL (0.0-1.3); Monocytes % 5.6 %; Neutrophils # 10.6 K/mcL (1.6-8.9); Platelet Count 254 K/mcL (140-400); Segmented Neutrophils % 73.1 %; White Blood Count 14.4 K/mcL (4.3-11.1)
[2020-07-04 08:59] LABS: Alanine Aminotransferase 15 Units/L (7-52); Aspartate Amino Transferase 13 Units/L (13-39); BUN/Creatinine Ratio 16 (6-26); Blood Urea Nitrogen 9 mg/dL (6-20); Lactate Dehydrogenase 150 Units/L (140-271); Uric Acid 5.5 mg/dL (2.3-7.6); eGFR For African Americans > 60 (> 60); eGFR For Non-African Americans > 60 (> 60)
[~2020-07-04 13:03] MED LIST changes: +*HR* HYDROmorphone 2 MG/ML SYRINGE IVP ONE; +*HR* Labetalol 20 MG/4 ML SYRINGE IVP PRN; -Acetaminophen 325 MG TABLET PO ONE; +Acetaminophen 325 MG TABLET PO PRN; -D5% in 0.45% NACL 1,000 ML IVC SCH; -Famotidine 20 MG/2 ML VIAL IVP PRN; +GENTAMICIN IVPB SCH; +Mag Hydrox/Al Hydrox/Simeth 30 ML UDC PO PRN; -Metoclopramide 10 MG/2 ML VIAL IVP PRN; -Naloxone 0.4 MG/ML INJ IVP PRN; +SODIUM CHLORIDE 0.9% IVPB SCH
[2020-07-04] MEDS ORDERED: Acetaminophen 325 MG TABLET PO PRN (13:07)
[2020-07-04] MEDS ORDERED: Mag Hydrox/Al Hydrox/Simeth 30 ML UDC PO PRN (13:07)
[2020-07-04] MEDS ORDERED: *HR* HYDROcodone/Acet 7.5/325 mg TABLET PO PRN (13:07)
[2020-07-04] MEDS: Ondansetron 4 MG/2 ML VIAL IVP PRN (16:41)
[2020-07-04] MEDS: Gentamicin 70 MG in 0.9 % Sodium Chloride 100 ML IVPB SCH (18:56)
[2020-07-04] MEDS ORDERED: Gentamicin 70 MG in 0.9 % Sodium Chloride 100 ML IVPB SCH (19:00)
[2020-07-05] MEDS: Gentamicin 70 MG in 0.9 % Sodium Chloride 100 ML IVPB SCH ×2 (00:49→10:51)
[2020-07-05] MEDS ORDERED: Prenatal Vit/FA 1 EACH TABLET PO SCH (09:00)
[2020-07-05 10:32] LABS: Total Volume 24 Hour,Urine 1.82 Liters (0.60-1.60)
[2020-07-05 10:33] LABS: Total Volume 24 Hour,Urine 1.82 Liters (0.60-1.60)
[2020-07-05 10:46] LABS: Protein/Creatinine Ratio,Urine 0.67 mg/mg (0.00-0.20)
[2020-07-05 10:55] LABS: Basophils % 0.3 %; Eosinophils # 0.1 K/mcL (0.0-0.6); Eosinophils % 0.5 %; Hematocrit 33.5 % (35.3-44.9); Hemoglobin 10.9 g/dL (11.5-15.4); Immature Granulocytes % 0.5 % (0-4); Lymphocytes # 2.7 K/mcL (0.6-4.6); Lymphocytes % 28.3 %; Mean Corpuscular HGB Conc 32.5 g/dL (31.6-35.5); Mean Corpuscular Hemoglobin 26.3 pg (28.0-33.3); Mean Corpuscular Volume 80.9 fL (83.0-100.0); Mean Platelet Volume 10.1 fL (9.4-12.4); Monocytes # 0.9 K/mcL (0.0-1.3); Monocytes % 8.9 %; Neutrophils # 5.9 K/mcL (1.6-8.9); Platelet Count 252 K/mcL (140-400); Red Blood Count 4.14 M/mcL (3.82-4.97); Red Cell Distribution Width 13.2 % (11.5-14.5); Segmented Neutrophils % 61.5 %; White Blood Count 9.6 K/mcL (4.3-11.1)
[2020-07-05] MEDS: Ondansetron 4 MG/2 ML VIAL IVP PRN (10:55)
[2020-07-05 11:14] LABS: Alanine Aminotransferase 16 Units/L (7-52); Aspartate Amino Transferase 12 Units/L (13-39); Blood Urea Nitrogen 9 mg/dL (6-20); Lactate Dehydrogenase 95 Units/L (140-271); Uric Acid 5.6 mg/dL (2.3-7.6)
[2020-07-05 12:18] VITALS: BP 120/70
== END 2020-07-05 12:57 | disposition home or self-care (01) ==
LOC: 1NENULAB → 1NENUOBS 13:03
PROVIDERS: ADMIT Obstetrics & Gynecology; ATTEND Obstetrics & Gynecology

== ENCOUNTER 2020-07-09 20:00 | Inpatient (IN) ==
[2020-07-09] MEDS ORDERED: Naloxone 0.4 MG/ML INJ IVP PRN (22:11)
[2020-07-09] MEDS ORDERED: *HR* FentaNYL (PF) 100 MCG/2 ML VIAL IVP PRN (22:11)
[2020-07-09] MEDS ORDERED: Ondansetron 4 MG/2 ML VIAL IVP PRN (22:11)
[2020-07-09] MEDS ORDERED: Metoclopramide 10 MG/2 ML VIAL IVP PRN (22:11)
[2020-07-09] MEDS ORDERED: Azithromycin 500 MG in 0.9 % Sodium Chloride 250 ML IVPB ONE (22:11)
[2020-07-09] MEDS ORDERED: Famotidine 20 MG/2 ML VIAL IVP PRN (22:11)
[2020-07-09] MEDS ORDERED: FLU Vac QV 20-21 (6Month+)/PF 0.5 ML SYRINGE IM ONE (22:51)
[2020-07-09 22:53] LABS: Basophils % 0.2 %; Eosinophils % 0.3 %; Hemoglobin 11.7 g/dL (11.5-15.4); Immature Granulocytes % 0.4 % (0-4); Lymphocytes # 2.6 K/mcL (0.6-4.6); Lymphocytes % 25.1 %; Mean Corpuscular HGB Conc 32.5 g/dL (31.6-35.5); Mean Corpuscular Hemoglobin 26.4 pg (28.0-33.3); Mean Corpuscular Volume 81.1 fL (83.0-100.0); Mean Platelet Volume 10.3 fL (9.4-12.4); Monocytes # 0.5 K/mcL (0.0-1.3); Monocytes % 4.8 %; Neutrophils # 7.2 K/mcL (1.6-8.9); Platelet Count 268 K/mcL (140-400); Red Blood Count 4.44 M/mcL (3.82-4.97); Segmented Neutrophils % 69.2 %; White Blood Count 10.4 K/mcL (4.3-11.1)
[2020-07-09 23:06] LABS: Amphetamine Screen,Urine Negative ng/mL (Cutoff=1000)
[2020-07-09 23:07] LABS: Barbiturate Screen,Urine Negative ng/mL (Cutoff=200); Benzodiazepines Screen,Urine Negative ng/mL (Cutoff=200); Cannabinoid Screen,Urine Negative ng/mL (Cutoff = 50); Cocaine Screen,Urine Negative ng/mL (Cutoff= 300); Opiate Screen,Urine Negative ng/mL (Cutoff=300); Phencyclidine Screen,Urine Negative ng/mL (Cutoff=25); Protein/Creatinine Ratio,Urine 0.12 mg/mg (0.00-0.20)
[2020-07-09 23:17] LABS: Alanine Aminotransferase 21 Units/L (7-52); Aspartate Amino Transferase 12 Units/L (13-39); BUN/Creatinine Ratio 20 (6-26); Blood Urea Nitrogen 11 mg/dL (6-20); Lactate Dehydrogenase 102 Units/L (140-271); Uric Acid 5.5 mg/dL (2.3-7.6); eGFR For African Americans > 60 (> 60); eGFR For Non-African Americans > 60 (> 60)
[2020-07-10] MEDS ORDERED: Clindamycin 900 MG/50 ML 900 MG/50 ML IV.SOLN IVPB ONE (00:11)
[2020-07-10] MEDS: Ringers Solution, Lactated 1,000 ML IVC SCH ×2 (01:08→11:26)
[2020-07-10] MEDS ORDERED: *HR* FentaNYL (PF) 100 MCG/2 ML VIAL EP ONE (02:00)
[2020-07-10] MEDS ORDERED: Ropivacaine/PF 0.2% 20 ML VIAL EP ONE (02:00)
[2020-07-10] MEDS ORDERED: Naloxone 0.4 MG/ML INJ IVP PRN (02:00)
[2020-07-10] MEDS ORDERED: EPHEDrine 50 MG/ML VIAL IVP PRN (02:00)
[2020-07-10] MEDS ORDERED: Ondansetron 4 MG/2 ML VIAL IVP PRN (02:00)
[2020-07-10] MEDS ORDERED: Oxytocin 20 units/ LR 1000 mL 20 UNIT/1,000 ML BAG IVC SCH ×2 (09:15→23:20)
[2020-07-10] MEDS: Epidural Premix (fent/bupiv) 110 ML EP SCH ×2 (11:24→18:27)
[2020-07-10] MEDS ORDERED: *HR* Ropivacaine/PF 0.5% 20 ML VIAL ONE (18:51)
[2020-07-10] MEDS ORDERED: Oxytocin 20 units/ LR 1000 mL 20 UNIT/1,000 ML BAG IVC ONE (23:20)
[2020-07-10] MEDS ORDERED: Benzocaine/Menthol 56 GM AEROSOL SPRAY TP PRN (23:20)
[2020-07-10] MEDS: Ibuprofen 600 MG TABLET PO PRN (23:45)
[2020-07-11] MEDS: Acetaminophen 325 MG TABLET PO PRN (01:30)
[2020-07-11] MEDS: Ibuprofen 600 MG TABLET PO PRN ×2 (06:01→15:56)
[2020-07-11] MEDS: Prenatal Vit/FA 1 EACH TABLET PO SCH (10:22)
[2020-07-11] MEDS: Nitrofurantoin (BID) 100 MG CAPSULE PO SCH ×2 (10:22→20:19)
[2020-07-12] MEDS: Ibuprofen 600 MG TABLET PO PRN ×2 (00:54→12:10)
[2020-07-12] MEDS: Acetaminophen 325 MG TABLET PO PRN (00:54)
[2020-07-12 09:01] VITALS: BP 135/95
[2020-07-12] MEDS: Nitrofurantoin (BID) 100 MG CAPSULE PO SCH (10:28)
[2020-07-12] MEDS: Prenatal Vit/FA 1 EACH TABLET PO SCH (10:28)
[2020-07-12] MEDS ORDERED: FLU Vac QV 20-21 (6Month+)/PF 0.5 ML SYRINGE IM ONE (11:24)
== END 2020-07-12 12:16 | disposition home or self-care (01) | DRG 560 ==
LOC: 1NENULAB 22:02 → 1NENUOBS 07-11 00:08
PROVIDERS: ADMIT Obstetrics & Gynecology; ATTEND Obstetrics & Gynecology

== ENCOUNTER → 2021-06-19 19:09 | Observation (INO) ==
[2021-06-19 16:27] LABS: Bacteria,Urine Few per hpf (None-Few); Basophils % 0.2 %; Bilirubin,Urine Negative (Negative); Blood,Urine Negative (Negative); Clarity,Urine Clear (Clear); Color,Urine Yellow (Yellow); Eosinophils # 0.1 K/mcL (0.0-0.6); Eosinophils % 0.6 %; Glucose,Urine (UA) Normal (Normal); Hematocrit 32.5 % (35.3-44.9); Hemoglobin 10.5 g/dL (11.5-15.4); Immature Granulocytes % 0.5 % (0-4); Ketones,Urine Negative (Negative); Leukocyte Esterase,Urine Negative (Negative); Lymphocytes # 2.1 K/mcL (0.6-4.6); Lymphocytes % 20.3 %; Mean Corpuscular HGB Conc 32.3 g/dL (31.6-35.5); Mean Corpuscular Hemoglobin 25.4 pg (28.0-33.3); Mean Corpuscular Volume 78.5 fL (83.0-100.0); Monocytes # 0.7 K/mcL (0.0-1.3); Monocytes % 6.4 %; Mucus,Urine Few per lpf (None-Few); Neutrophils # 7.6 K/mcL (1.6-8.9); Nitrite,Urine Negative (Negative); PH,Urine 6.5 pH Units (5.0-8.0); Platelet Count 248 K/mcL (140-400); Protein,Urine 30 mg/dL (Neg-Trace); RBC,Urine 0-3 per hpf (0-3); Red Blood Count 4.14 M/mcL (3.82-4.97); Red Cell Distribution Width 13.4 % (11.5-14.5); Specific Gravity,Urine 1.029 (1.010-1.025); Squamous Epithelial Cell,Urine Moderate per hpf (None-Few); Urobilinogen,Urine Normal (Normal); WBC,Urine 0-3 per hpf (0-3); White Blood Count 10.5 K/mcL (4.3-11.1)
[2021-06-19 16:55] LABS: Alanine Aminotransferase 8 Units/L (7-52); Aspartate Amino Transferase 9 Units/L (13-39); BUN/Creatinine Ratio 16 (6-26); Blood Urea Nitrogen 7 mg/dL (6-20); Lactate Dehydrogenase 101 Units/L (140-271); Uric Acid 4.5 mg/dL (2.3-7.6); eGFR For African Americans > 60 (> 60); eGFR For Non-African Americans > 60 (> 60)
[2021-06-19 17:48] LABS: Protein/Creatinine Ratio,Urine 0.1 mg/mg (0.00-0.20)
[~2021-06-19 19:09] MED LIST changes: -*HR* HYDROmorphone 2 MG/ML SYRINGE IVP ONE; -*HR* Labetalol 20 MG/4 ML SYRINGE IVP PRN; +Acetaminophen 325 MG TABLET PO ONE; -Acetaminophen 325 MG TABLET PO PRN; -GENTAMICIN IVPB SCH; -Mag Hydrox/Al Hydrox/Simeth 30 ML UDC PO PRN; +Metoclopramide 10 MG/2 ML VIAL IVP ONE; -SODIUM CHLORIDE 0.9% IVPB SCH
== END | disposition home or self-care (01) ==
LOC: 1NENULAB
PROVIDERS: ADMIT Registered Nurse; ATTEND Registered Nurse

== ENCOUNTER → 2021-06-23 17:49 | Observation (INO) ==
[2021-06-23 16:52] LABS: Basophils % 0.3 %; Eosinophils % 0.3 %; Hematocrit 33.7 % (35.3-44.9); Hemoglobin 11.1 g/dL (11.5-15.4); Immature Granulocytes % 0.6 % (0-4); Lymphocytes # 1.3 K/mcL (0.6-4.6); Lymphocytes % 11.4 %; Mean Corpuscular HGB Conc 32.9 g/dL (31.6-35.5); Mean Corpuscular Hemoglobin 25.9 pg (28.0-33.3); Mean Corpuscular Volume 78.7 fL (83.0-100.0); Monocytes # 0.5 K/mcL (0.0-1.3); Monocytes % 4.6 %; Neutrophils # 9.1 K/mcL (1.6-8.9); Platelet Count 241 K/mcL (140-400); Red Blood Count 4.28 M/mcL (3.82-4.97); Red Cell Distribution Width 13.4 % (11.5-14.5); Segmented Neutrophils % 82.8 %
[2021-06-23 16:53] LABS: Bacteria,Urine Few per hpf (None-Few); Bilirubin,Urine Negative (Negative); Blood,Urine Negative (Negative); Clarity,Urine Turbid (Clear); Color,Urine Yellow (Yellow); Glucose,Urine (UA) Normal (Normal); Ketones,Urine Trace mg/dL (Negative); Leukocyte Esterase,Urine Negative (Negative); Mucus,Urine Few per lpf (None-Few); Nitrite,Urine Negative (Negative); PH,Urine 7.5 pH Units (5.0-8.0); Protein,Urine Trace mg/dL (Neg-Trace); RBC,Urine 0-3 per hpf (0-3); Specific Gravity,Urine 1.015 (1.010-1.025); Squamous Epithelial Cell,Urine Moderate per hpf (None-Few); Urobilinogen,Urine Normal (Normal); WBC,Urine 0-3 per hpf (0-3)
[2021-06-23 16:59] LABS: Protein/Creatinine Ratio,Urine 0.12 mg/mg (0.00-0.20)
[2021-06-23 17:15] LABS: Alanine Aminotransferase 9 Units/L (7-52); Aspartate Amino Transferase 10 Units/L (13-39); BUN/Creatinine Ratio 12 (6-26); Blood Urea Nitrogen 6 mg/dL (6-20); Lactate Dehydrogenase 120 Units/L (140-271); eGFR For African Americans > 60 (> 60); eGFR For Non-African Americans > 60 (> 60)
[~2021-06-23 17:49] MED LIST changes: -Acetaminophen 325 MG TABLET PO ONE; -Metoclopramide 10 MG/2 ML VIAL IVP ONE; +Ondansetron 4 MG/2 ML VIAL IVP ONE
== END | disposition home or self-care (01) ==
LOC: 1NENULAB
PROVIDERS: ADMIT Obstetrics & Gynecology; ATTEND Obstetrics & Gynecology

== ENCOUNTER → 2021-06-25 21:41 | Observation (INO) ==
[2021-06-25 19:44] LABS: Basophils % 0.2 %; Eosinophils % 0.1 %; Hematocrit 31.4 % (35.3-44.9); Hemoglobin 9.9 g/dL (11.5-15.4); Immature Granulocytes % 0.7 % (0-4); Lymphocytes # 1.5 K/mcL (0.6-4.6); Lymphocytes % 12.1 %; Mean Corpuscular HGB Conc 31.5 g/dL (31.6-35.5); Mean Corpuscular Hemoglobin 24.9 pg (28.0-33.3); Mean Corpuscular Volume 78.9 fL (83.0-100.0); Mean Platelet Volume 10.1 fL (9.4-12.4); Monocytes # 0.7 K/mcL (0.0-1.3); Monocytes % 5.2 %; Neutrophils # 10.3 K/mcL (1.6-8.9); Platelet Count 217 K/mcL (140-400); Red Blood Count 3.98 M/mcL (3.82-4.97); Red Cell Distribution Width 13.6 % (11.5-14.5); Segmented Neutrophils % 81.7 %; White Blood Count 12.6 K/mcL (4.3-11.1)
[2021-06-25 19:56] LABS: Protein/Creatinine Ratio,Urine 0.13 mg/mg (0.00-0.20)
[2021-06-25 19:57] LABS: Alanine Aminotransferase 9 Units/L (7-52); Aspartate Amino Transferase 8 Units/L (13-39); BUN/Creatinine Ratio 15 (6-26); Blood Urea Nitrogen 8 mg/dL (6-20); Lactate Dehydrogenase 114 Units/L (140-271); Uric Acid 5.1 mg/dL (2.3-7.6); eGFR For African Americans > 60 (> 60); eGFR For Non-African Americans > 60 (> 60)
[2021-06-25 21:14] LABS: Influenza A PCR Negative (Negative); Influenza B PCR Negative (Negative); Resp. Syncytial Virus PCR Negative (Negative)
[2021-06-25 21:16] LABS: SARS-CoV-2 by PCR (In House) Negative (Negative)
[~2021-06-25 21:41] MED LIST changes: +Acetaminophen 325 MG TABLET PO ONE; -Ondansetron 4 MG/2 ML VIAL IVP ONE; +SUMAtriptan succinate 25 MG TABLET PO ONE
== END | disposition home or self-care (01) ==
LOC: 1NENULAB
PROVIDERS: ADMIT Student in an Organized Health Care Education/Training Program; ATTEND Student in an Organized Health Care Education/Training Program

== ENCOUNTER → 2021-06-26 20:18 | Observation (INO) ==
[2021-06-26 19:59] LABS: Adenovirus Not Detected (Not Detect); Bordetella Pertussis Not Detected (Not Detect); Chlamydophila pneumoniae Not Detected (Not Detect); Coronavirus 229E Not Detected (Not Detect); Coronavirus HKU1 Not Detected (Not Detect); Coronavirus NL63 Not Detected (Not Detect); Coronavirus OC43 Not Detected (Not Detect); Human Metapneumovirus Not Detected (Not Detect); Human Rhinovirus/Enterovirus Not Detected (Not Detect); Influenza A Subtype 2009 H1 Not Detected (Not Detect); Influenza B Not Detected (Not Detect); Mycoplasma pneumoniae Not Detected (Not Detect); Parainfluenza Virus 1 Not Detected (Not Detect); Parainfluenza Virus 2 Not Detected (Not Detect); Parainfluenza Virus 3 Not Detected (Not Detect); Parainfluenza Virus 4 Not Detected (Not Detect); Respiratory Syncytial Virus Not Detected (Not Detect); SARS-CoV-2 Not Detected (Not Detect)
[~2021-06-26 20:18] MED LIST changes: -Acetaminophen 325 MG TABLET PO ONE; +Acetaminophen/Butalbital/CaffeineTABLET PO PRN; +LABETALOL 200 MG PO SCH; +Ondansetron 4 MG/2 ML VIAL IVP PRN; +Ringers Solution, Lactated 1,000 ML IVC ONE; +Ringers Solution, Lactated 1,000 ML ONE; -SUMAtriptan succinate 25 MG TABLET PO ONE
== END | disposition home or self-care (01) ==
LOC: 1NENULAB
PROVIDERS: ADMIT Student in an Organized Health Care Education/Training Program; ATTEND Student in an Organized Health Care Education/Training Program

== ENCOUNTER 2021-07-03 07:43 | Inpatient (IN) ==
[2021-07-03] MEDS ORDERED: Oxytocin 20 units/ LR 1000 mL 20 UNIT/1,000 ML BAG IVC SCH ×2 (07:45→21:44)
[2021-07-03] MEDS ORDERED: Famotidine 20 MG/2 ML VIAL IVP PRN (07:45)
[2021-07-03] MEDS ORDERED: Metoclopramide 10 MG/2 ML VIAL IVP PRN (07:45)
[2021-07-03] MEDS ORDERED: Ondansetron 4 MG/2 ML VIAL IVP PRN (07:45)
[2021-07-03] MEDS ORDERED: Azithromycin 500 MG in 0.9 % Sodium Chloride 250 ML IVPB PRN (07:45)
[2021-07-03] MEDS ORDERED: *HR* Nalbuphine 10 MG/ML AMPUL IV PRN (07:45)
[2021-07-03] MEDS ORDERED: Naloxone 0.4 MG/ML INJ IVP PRN (07:45)
[2021-07-03] MEDS: Ringers Solution, Lactated 1,000 ML IVC SCH ×2 (08:27→13:28)
[2021-07-03 08:32] LABS: Basophils % 0.2 %; Eosinophils # 0.1 K/mcL (0.0-0.6); Eosinophils % 0.7 %; Hemoglobin 11.2 g/dL (11.5-15.4); Immature Granulocytes % 0.6 % (0-4); Lymphocytes # 2.7 K/mcL (0.6-4.6); Lymphocytes % 28.3 %; Mean Corpuscular HGB Conc 31.1 g/dL (31.6-35.5); Mean Corpuscular Hemoglobin 24.7 pg (28.0-33.3); Mean Corpuscular Volume 79.5 fL (83.0-100.0); Mean Platelet Volume 9.8 fL (9.4-12.4); Monocytes # 0.5 K/mcL (0.0-1.3); Monocytes % 5.2 %; Neutrophils # 6.1 K/mcL (1.6-8.9); Platelet Count 300 K/mcL (140-400); Red Blood Count 4.53 M/mcL (3.82-4.97); Red Cell Distribution Width 14.5 % (11.5-14.5); White Blood Count 9.4 K/mcL (4.3-11.1)
[2021-07-03 09:03] LABS: Alanine Aminotransferase 24 Units/L (7-52); Aspartate Amino Transferase 15 Units/L (13-39); BUN/Creatinine Ratio 14 (6-26); Blood Urea Nitrogen 8 mg/dL (6-20); Lactate Dehydrogenase 137 Units/L (140-271); Uric Acid 4.7 mg/dL (2.3-7.6); eGFR For African Americans > 60 (> 60); eGFR For Non-African Americans > 60 (> 60)
[2021-07-03] MEDS ORDERED: EPHEDrine 50 MG/ML VIAL IVP PRN (09:23)
[2021-07-03 09:27] LABS: Influenza A PCR Negative (Negative); Influenza B PCR Negative (Negative); Resp. Syncytial Virus PCR Negative (Negative)
[2021-07-03] MEDS ORDERED: Epidural Premix (fent/bupiv) 110 ML EP SCH (09:30)
[2021-07-03 09:50] LABS: SARS-CoV-2 by PCR (In House) Negative (Negative)
[2021-07-03 10:36] LABS: Protein/Creatinine Ratio,Urine 0.22 mg/mg (0.00-0.20)
[2021-07-03 12:16] LABS: Amphetamine Screen,Urine Negative ng/mL (Cutoff=1000); Barbiturate Screen,Urine Positive ng/mL (Cutoff=200); Benzodiazepines Screen,Urine Negative ng/mL (Cutoff=200); Cannabinoid Screen,Urine Negative ng/mL (Cutoff = 50); Cocaine Screen,Urine Negative ng/mL (Cutoff= 300); Opiate Screen,Urine Negative ng/mL (Cutoff=300); Phencyclidine Screen,Urine Negative ng/mL (Cutoff=25)
[2021-07-03] MEDS ORDERED: *HR* Labetalol 20 MG/4 ML SYRINGE IVP ONE (13:40)
[2021-07-03] MEDS ORDERED: Measles/Mumps/Rubella Vacc 0.5 ML VIAL SQ PRN (21:44)
[2021-07-03] MEDS ORDERED: Ondansetron ODT 4 MG TAB.RAPDIS SL PRN (21:44)
[2021-07-03] MEDS ORDERED: Lanolin 7 G OINT...G. TP PRN (21:44)
[2021-07-03] MEDS ORDERED: Oxytocin 20 units/ LR 1000 mL 20 UNIT/1,000 ML BAG IVC ONE (21:44)
[2021-07-03] MEDS ORDERED: Benzocaine/Menthol 56 GM AEROSOL SPRAY TP PRN (21:44)
[2021-07-03] MEDS ORDERED: Rho Immune Globulin 1,500 UNIT SYRINGE IM PRN (21:44)
[2021-07-03] MEDS: Ibuprofen 600 MG TABLET PO SCH (23:34)
[2021-07-04] MEDS: Acetaminophen 325 MG TABLET PO SCH ×2 (04:55→16:46)
[2021-07-04 05:00] LABS: Basophils % 0.2 %; Eosinophils # 0.1 K/mcL (0.0-0.6); Eosinophils % 0.5 %; Hematocrit 27.6 % (35.3-44.9); Immature Granulocytes % 0.5 % (0-4); Lymphocytes # 3.2 K/mcL (0.6-4.6); Lymphocytes % 24.6 %; Mean Corpuscular HGB Conc 32.6 g/dL (31.6-35.5); Mean Corpuscular Hemoglobin 25.8 pg (28.0-33.3); Mean Corpuscular Volume 79.1 fL (83.0-100.0); Mean Platelet Volume 9.8 fL (9.4-12.4); Monocytes # 1.1 K/mcL (0.0-1.3); Neutrophils # 8.7 K/mcL (1.6-8.9); Platelet Count 220 K/mcL (140-400); Red Blood Count 3.49 M/mcL (3.82-4.97); Red Cell Distribution Width 14.4 % (11.5-14.5); Segmented Neutrophils % 66.2 %; White Blood Count 13.2 K/mcL (4.3-11.1)
[2021-07-04 05:12] VITALS: O2SAT 98
[2021-07-04] MEDS ORDERED: Prenatal Vit/FA 1 EACH TABLET PO SCH (09:00)
[2021-07-04] MEDS: Ibuprofen 600 MG TABLET PO SCH ×2 (09:54→16:46)
[2021-07-04 15:46] VITALS: BP 153/98; PULSE 88; TEMP 97.9
== END 2021-07-04 19:30 | disposition home or self-care (01) | DRG 560 ==
LOC: 1NENULAB 07:43 → 1NENUOBS 21:49
PROVIDERS: ADMIT Student in an Organized Health Care Education/Training Program; ATTEND Student in an Organized Health Care Education/Training Program